=== PATIENT | female | born 1990 | race Caucasian/White ===

== ENCOUNTER 2023-05-11 08:27 | Outpatient (CLI) | payer BC | END 2023-05-11 08:28 | disposition home or self-care (01) | LOC: CSHULT 08:27 | PROVIDERS: ATTEND Internal Medicine Nephrology | DX: N18.9 Chronic kidney disease, unspecified (principal); R80.9 Proteinuria, unspecified; R31.9 Hematuria, unspecified; K21.9 Gastro-esophageal reflux disease without esophagitis; E78.5 Hyperlipidemia, unspecified; N39.0 Urinary tract infection, site not specified | CPT/HCPCS: 76770 ==